=== PATIENT | female | born 1980 | race Caucasian/White ===

== ENCOUNTER 2017-07-19 21:35 | Emergency (ER) | payer OTHER ==
[2017-07-19 21:40] VITALS: BP 126/80; PULSE 92; TEMP 98.1; BMI 26.6
--- NOTE | 2017-07-19 22:08 | PDOC ---
History of Present Illness - General Chief Complaint: Pain Stated Complaint: CHEST PAIN Time Seen by Provider: 07/19/17 21:49 Past History - Past Medical History Allergies/Adverse Reactions: Allergies Allergy/AdvReac Type Severity Reaction Status Date / Time No Known Allergies Allergy Verified 07/19/17 21:36 Home Medications: Ambulatory Orders NK [No Known Home Medication] 07/19/17 COPD: No - Suicide/Smoking/Psychosocial Hx Smoking Status: No Smoking History: Never smoked Number of Cigarettes Smoked Daily: 0 *Physical Exam - Vital Signs Last Vital Signs Temp Pulse Resp BP Pulse Ox 98.1 F 92 H 18 126/80 100 07/19/17 21:37 07/19/17 21:37 07/19/17 21:37 07/19/17 21:37 07/19/17 21:37
--- NOTE | 2017-07-19 22:12 | PDOC ---
History of Present Illness - General Chief Complaint: Pain Stated Complaint: CHEST PAIN Time Seen by Provider: 07/19/17 21:49 History Source: Patient Exam Limitations: No Limitations - History of Present Illness Initial Comments: 07/19/17 22:05 The 36-year-old woman past medical history of anxiety who presents emergency Department with left breast pain for 2 hours. Patient states she was laying on the couch watching television when she developed acute onset pain to left breast starting on the lateral side working its way to the medial aspect of the breast. Patient then states that the pain became deeper and she was unable to identify where the pain was. Patient then developed midsternal chest tightness and shortness of breath. Patient stepped outside and when she started breathing fresh air, the chest tightness went away. The chest tightness and shortness of breath are consistent with her usual panic attacks. Patient presents for care stating "I am terrified that I will of a heart attack at a young age." She denies fevers, chills, dizziness, shortness of breath, nausea, vomiting, abdominal pain, breast erythema or nipple discharge. PMD: Darius and great neck your Psychiatrist: Carlin Occupation: data coder operator LMP approximately 2 weeks ago Tobacco: Denies EtOH: Occasional Illicits: Denies Past History - Past Medical History Allergies/Adverse Reactions: Allergies Allergy/AdvReac Type Severity Reaction Status Date / Time No Known Allergies Allergy Verified 07/19/17 21:36 Home Medications: Ambulatory Orders NK [No Known Home Medication] 07/19/17 COPD: No - Suicide/Smoking/Psychosocial Hx Smoking Status: No Smoking History: Never smoked Number of Cigarettes Smoked Daily: 0 Review of Systems - Review of Systems Able to Perform ROS?: Yes Is the patient limited Luxembourgish proficient: No Constitutional: No: Symptoms Reported HEENTM: No: Symptoms Reported Respiratory: No: Symptoms reported Cardiac (ROS): Yes: See HPI ABD/GI: No: Symptoms Reported : No: Symptoms Reported Musculoskeletal: No: Symptoms Reported Integumentary: No: Symptoms Reported Neurological: No: Symptoms reported Psychiatric: Yes: Anxiety Endocrine: No: Symptoms Reported Hematologic/Lymphatic: No: Symptoms Reported *Physical Exam - Vital Signs Last Vital Signs Temp Pulse Resp BP Pulse Ox 98.1 F 92 H 18 126/80 100 07/19/17 21:37 07/19/17 21:37 07/19/17 21:37 07/19/17 21:37 07/19/17 21:37 - Physical Exam General Appearance: Yes: Appropriately Dressed. No: Apparent Distress HEENT: positive: EOMI, AMBROSIO, Normal ENT Inspection Neck: positive: Trachea midline, Supple Respiratory/Chest: positive: Chest Tender (to left lateral breast), Lungs Clear , Normal Breath Sounds, Other (breast exam without erythema or masses. No discharge from nipple. TTP to left lateral breast.). negative: Respiratory Distress, Accessory Muscle Use Cardiovascular: positive: Regular Rhythm, S1, S2, Tachycardia. negative: Edema , Murmur Gastrointestinal/Abdominal: positive: Normal Bowel Sounds, Soft. negative: Tender Musculoskeletal: positive: Normal Inspection. negative: CVA Tenderness Extremity: positive: Normal Capillary Refill, Normal Inspection, Normal Range of Motion Integumentary: positive: Normal Color, Dry, Warm Neurologic: positive: account executive II-XII NML intact, Fully Oriented, Alert, Normal Mood/ Affect, Normal Response, Motor Strength 5/5 Heart Score/ECG Review - History History: Slightly suspicious - Electrocardiogram EKG: Non specific repolarization disturbance - Age Age: </= 45 - Risk Factors Risk Factors Heart Score: No Hx Hypercholesterolemia, No Hx Hypertension, No Hx Diabetes, No Smoking History, No Positive family hx of cardiac disease, No Hx Obesity Based on the list above the patient has:: No risk factors known - Troponin Troponin: </= normal limit - Score Heart Score - Total: 1 - ECG Intrepretation Rhythm: Regular Rhythm - ST and T Flattened T Waves: Yes ED Treatment Course - LABORATORY CBC & Chemistry Diagram: 07/19/17 22:27 07/19/17 22:27 - RADIOLOGY Radiology Studies Ordered: Category Date Time Status CHEST PA & LAT [RAD] Stat Radiology 07/19/17 22:03 Ordered Medical Decision Making - Medical Decision Making 07/19/17 22:08 A/P: The 36-year-old woman past medical history of anxiety who presents emergency Department with left breast pain for 2 hours. Patient states she was laying on the couch watching television when she developed acute onset pain to left breast starting on the lateral side working its way to the medial aspect of the breast. Patient then states that the pain became deeper and she was unable to identify where the pain was. Patient then developed midsternal chest tightness and shortness of breath. Patient stepped outside and when she started breathing fresh air, the chest tightness went away. The chest tightness and shortness of breath are consistent with her usual panic attacks. Patient presents for care stating "I am terrified that I will of a heart attack at a young age." She denies fevers, chills, dizziness, shortness of breath, nausea, vomiting, abdominal pain, breast erythema or nipple discharge. Patient denies oral contraceptive medication. Oropharynx clear without erythema or exudates. Left breast TTP at lateral aspect. No erythema or masses present. No discharge from nipple. Speaking full sentences. Respirations even and unlabored. Lungs clear to auscultation bilaterally. Tachycardia with rate of 102 and a regular rhythm. No murmur, rub or gallop noted. S1 and S2 present. Normoactive bowel sounds. Abdomen soft nontender nondistended. nontender without erythema. No cords noted. Differential diagnosis includes anxiety, PE, ACS, costochondritis, mastitis Patient is low likelihood for PE with a PERC score of 1. I'll perform a chest x- ray. I'll obtain CBC, CMP, cardiac profile, urinalysis, urine test, d- dimer, coagulation profile. I will reevaluate the patient after all testing has been completed. 07/19/17 23:55 Laboratory testing is unremarkable- with negative troponin and ddimer. Chest x- ray as read by me: no pulmonary infiltrate or consolidation. Angles are clear. heart score of 1. I discussed the physical exam findings, ancillary test results and final diagnoses with the patient. I answered all of the patient's questions. The patient was satisfied with the care received and felt comfortable with the discharge plan and treatment plan. The patient will call her PMD within 96 hours to arrange follow-up and will return to the Emergency Department with any new, persistent or worsening symptoms. *DC/Admit/Observation/Transfer Diagnosis at time of Disposition: Costal chondritis - Discharge Dispostion Disposition: HOME Condition at time of disposition: Stable Admit: No - Referrals - Patient Instructions Additional Instructions: Take Tylenol or Motrin as needed for pain. Follow manufacturers instructions for appropriate dosage. Return to emergency department for shortness of breath, chest pain, dizziness, nausea, vomiting, shortness of breath or any other concerns. Make an appointment to see her primary doctor within the next week. Thank you very much for choosing us to provide your emergent healthcare needs. - Post Discharge Activity
[2017-07-19 22:44] LABS: BASO % 0.4 % (0-2.0); EOS % 2.6 % (0-4.5); HEMATOCRIT 41.1 % (32.4-45.2); HEMOGLOBIN 13.8 GM/dL (10.7-15.3); LYMPH % 44.8 % (8-40); MCH 26.8 pg (25.7-33.7); MCHC 33.5 g/dl (32.0-36.0); MEAN PLT VOLUME 8.2 fl (7.5-11.1); MONO % 6.2 % (3.8-10.2); PLATELET COUNT 239 K/MM3 (134-434); RBC 5.15 M/mm3 (3.60-5.2); RDW 13.6 % (11.6-15.6); WHITE BLOOD COUNT 7.7 K/mm3 (4.0-10.0)
[2017-07-19 22:46] LABS: URINE APPEARANCE CLEAR; URINE BILIRUBIN NEGATIVE (NEGATIVE); URINE BLOOD NEGATIVE (NEGATIVE); URINE COLOR STRAW; URINE GLUCOSE (UA) NEGATIVE (NEGATIVE); URINE KETONE NEGATIVE (NEGATIVE); URINE LEUK ESTERASE NEGATIVE (NEGATIVE); URINE NITRITE NEGATIVE (NEGATIVE); URINE PROTEIN NEGATIVE (NEGATIVE); URINE UROBILINOGEN NEGATIVE mg/dL (0.2-1.0)
[2017-07-19 22:49] LABS: HCG,QUALITATIVE URINE NEGATIVE
[2017-07-19 22:57] LABS: INR 0.98 (0.82-1.09); PROTHROMBIN TIME (PATIENT) 11.1 SEC (9.98-11.88)
[2017-07-19 23:16] LABS: ALBUMIN 3.9 g/dl (3.4-5.0); ANION GAP 7 (8-16); BILIRUBIN,TOTAL 0.3 mg/dL (0.2-1.0); BLOOD UREA NITROGEN 11 mg/dL (7-18); CALCIUM 8.1 mg/dL (8.5-10.1); CHLORIDE 103 mmol/L (98-107); CO2 27 mmol/L (21-32); CREATININE 0.8 mg/dL (0.55-1.02); GLUCOSE,RANDOM 105 mg/dL (74-106); POTASSIUM 3.6 mmol/L (3.5-5.1); SGOT/AST 14 U/L (15-37); SGPT/ALT 31 U/L (12-78); SODIUM 137 mmol/L (136-145); TOT PROT 7.3 g/dl (6.4-8.2)
[2017-07-19 23:18] LABS: ALK PHOS 72 U/L (45-117)
--- NOTE | 2017-07-20 15:09 | EKG ---
Test Reason : Blood Pressure : / mmHG Vent. Rate : 088 BPM Atrial Rate : 088 BPM P-R Int : 168 ms QRS Dur : 086 ms QT Int : 358 ms P-R-T Axes : 055 -05 037 degrees QTc Int : 433 ms POOR DATA QUALITY, INTERPRETATION MAY BE ADVERSELY AFFECTED NORMAL SINUS RHYTHM POSSIBLE LEFT ATRIAL ENLARGEMENT SEPTAL INFARCT , AGE UNDETERMINED ABNORMAL ECG NO PREVIOUS ECGS AVAILABLE Confirmed by Be Sampson ([id number]) on 07/20/2017 3:09:18 PM Referred By: Confirmed By:Be Sampson
== END 2017-07-20 00:16 | disposition home or self-care (01) ==
LOC: JER 21:35
DX: M94.0 Chondrocostal junction syndrome [Tietze] (principal)
CPT/HCPCS: 36415; 71046-TC; 80053; 81003; 82550; 84484; 84703; 85025; 85379; 85610; 93005; 93010; 99281-25